=== PATIENT | male | born 1935 | race Caucasian/White ===

== ENCOUNTER 2023-06-08 19:33 | Inpatient (IN) | payer OTHER ==
[~2023-06-08] VITALS: Ht 165.1 cm; Wt 63.0 kg
[2023-06-08 19:58] VITALS: BP 138/72; PULSE 113; RESP 17; TEMP 98.2; O2SAT 94
[2023-06-08] MEDS ORDERED: NACL 0.9% 1,000 ML IV SCH (20:05)
[2023-06-08 22:15] LABS: BASOPHILS % (AUTO) 0.1 % (0.0-2.0); HEMATOCRIT 32.9 % (36-52); HEMOGLOBIN 10.6 g/dL (12.0-18.0); LYMPHOCYTES # (AUTO) 0.1 K/uL (2.0-11.5); MEAN CORPUSCULAR HEMOGLOBIN 29 pg (27-31); MEAN CORPUSCULAR HGB CONC 32 g/dL (33-37); MEAN CORPUSCULAR VOLUME 89.2 fL (80-94); MONOCYTES # (AUTO) 0.3 K/uL (0.8-1.0); MONOCYTES % (AUTO) 1.9 % (1.7-9.3); PLATELET COUNT (AUTO) 149 K/uL (140-450); RED BLOOD CELL COUNT(AUTO) 3.69 MIL/uL (4.20-6.10); RED CELL DISTRIBUTION WIDTH 16.3 % (11.6-13.7); WHITE BLOOD COUNT (AUTO) 14.4 K/uL (4.8-10.8)
[2023-06-08 22:38] LABS: ALANINE AMINOTRANSFERASE 31 U/L (12-78); ALBUMIN 2.1 g/dL (3.4-5.0); ALKALINE PHOSPHATASE 146 U/L (50-136); ANION GAP 26.8 (8-16); ASPARTATE AMINOTRANSFERASE 46 U/L (15-37); CALCIUM 9.1 mg/dL (8.5-10.1); CARBON DIOXIDE 15.7 mmol/L (21-32); CHLORIDE 100 mmol/L (98-107); CREATININE 0.8 mg/dL (0.6-1.3); GLUCOSE 227 mg/dL (74-106); POTASSIUM 4.5 mmol/L (3.5-5.1); SODIUM SERUM 138 mmol/L (136-145); TOTAL BILIRUBIN 0.6 mg/dL (0.0-1.0); UREA NITROGEN, BLOOD 36 mg/dL (7-18)
[2023-06-08 22:40] LABS: CREATINE KINASE, TOTAL 88 U/L (39-308)
[2023-06-08 22:48] LABS: LACTIC ACID 1.8 mmol/L (0.4-2.0)
[2023-06-08] MEDS ORDERED: VANCOMYCIN 1,000 MG in DEXTROSE 5% 250 ML IV ONE (23:10)
[2023-06-08] MEDS ORDERED: PIPERACILLIN/TAZOBACTAM 3.375 GM in DEXTROSE 5% 50 ML IV ONE (23:10)
[2023-06-08 23:25] LABS: FLU A ANTIGEN negative (NEGATIVE); FLU B ANTIGEN NEGATIVE (NEGATIVE)
[2023-06-08] MEDS ORDERED: PIPERACILLIN/TAZOBACTAM 3.375 GM VIAL IV ONE (23:27)
[2023-06-08] MEDS ORDERED: NACL 0.9% 1,000 ML IV ONE (23:40)
[2023-06-08 23:43] LABS: FREE T4 (FREE THYROXINE) 1.16 ng/dL (0.76-1.46)
[2023-06-08 23:44] LABS: THYROID STIMULATING HORMONE 0.2 uIU/mL (0.34-3.74)
[2023-06-09 00:45] LABS: APPEARANCE,URINE CLEAR (CLEAR); BILIRUBIN,URINE NEGATIVE (NEGATIVE); BLOOD, URINE NEGATIVE (NEGATIVE); COLOR,URINE YELLOW (YELLOW); LEUKOCYTE ESTERASE ,URINE NEGATIVE (NEGATIVE); NITRITE, URINE NEGATIVE (NEGATIVE); PROTEIN,URINE NEGATIVE (NEGATIVE); UGLUCOSE 3+ (NEGATIVE); UROBILINOGEN,URINE 0.2 EU/dL (0.2 - 1)
[2023-06-09] MEDS ORDERED: VANCOMYCIN 1,000 MG VIAL ONE (01:41)
[2023-06-09] MEDS ORDERED: NACL 0.9% 1,000 ML IV ONE (01:55)
[2023-06-09] MEDS ORDERED: DOCUSATE SODIUM 100 MG GELCAP PO PRN (02:35)
[2023-06-09] MEDS ORDERED: guaiFENesin DM 200/20 MG-10 ML 10 ML UDC PO PRN (02:35)
[2023-06-09] MEDS ORDERED: NACL 0.9% 1,000 ML IV SCH (02:35)
[2023-06-09] MEDS ORDERED: ZOLPIDEM 5 MG TAB PO PRN (02:35)
[2023-06-09] MEDS ORDERED: ONDANSETRON 4 MG/2 ML VIAL IM/IVP PRN (02:35)
[2023-06-09 05:32] LABS: BLOOD GAS BASE EXCESS -13.7 mmol/L (-2.0-2.0); BLOOD GAS HCO3 11.4 mmol/L (22-26); BLOOD GAS PCO2 24.7 mmHg (35-45); BLOOD GAS PH 7.281 (7.35-7.45); BLOOD GAS PO2 65.6 mmHg (75-100)
[2023-06-09 05:33] LABS: BLOOD GAS O2 SAT% 90.3 % (92.0-98.5)
[2023-06-09 06:29] LABS: BASOPHILS % (AUTO) 0.1 % (0.0-2.0); EOSINOPHILS # (AUTO) 0.1 K/uL (0-0.4); EOSINOPHILS % (AUTO) 0.5 % (0.0-4.0); HEMOGLOBIN 12.3 g/dL (12.0-18.0); LYMPHOCYTES # (AUTO) 0.3 K/uL (2.0-11.5); LYMPHOCYTES % (AUTO) 2.1 % (20.5-51.1); MEAN CORPUSCULAR HEMOGLOBIN 29 pg (27-31); MEAN CORPUSCULAR HGB CONC 32 g/dL (33-37); MEAN CORPUSCULAR VOLUME 90.3 fL (80-94); MONOCYTES # (AUTO) 0.3 K/uL (0.8-1.0); MONOCYTES % (AUTO) 2.1 % (1.7-9.3); NEUTROPHILS # (AUTO) 12.6 K/uL (1.8-7.7); NEUTROPHILS % (AUTO) 95.2 % (42.2-75.2); PLATELET COUNT (AUTO) 136 K/uL (140-450); RED BLOOD CELL COUNT(AUTO) 4.32 MIL/uL (4.20-6.10); RED CELL DISTRIBUTION WIDTH 16.6 % (11.6-13.7); WHITE BLOOD COUNT (AUTO) 13.3 K/uL (4.8-10.8)
[2023-06-09 07:10] LABS: ALANINE AMINOTRANSFERASE 32 U/L (12-78); ALBUMIN 1.9 g/dL (3.4-5.0); ALKALINE PHOSPHATASE 145 U/L (50-136); ANION GAP 25.4 (8-16); ASPARTATE AMINOTRANSFERASE 92 U/L (15-37); CALCIUM 8.5 mg/dL (8.5-10.1); CARBON DIOXIDE 14.8 mmol/L (21-32); CHLORIDE 104 mmol/L (98-107); CREATININE 0.6 mg/dL (0.6-1.3); GLUCOSE 168 mg/dL (74-106); POTASSIUM 4.2 mmol/L (3.5-5.1); SODIUM SERUM 140 mmol/L (136-145); TOTAL BILIRUBIN 0.6 mg/dL (0.0-1.0); TOTAL PROTEIN, SERUM 5.8 g/dL (6.4-8.2); UREA NITROGEN, BLOOD 24 mg/dL (7-18)
[2023-06-09] MEDS ORDERED: INSULIN REGULAR, HUMAN 100 UNIT in NACL 0.9% 100 ML IV SCH ×4 (08:45→12:10)
[2023-06-09] MEDS ORDERED: BLOOD GLUCOSE MONITORING 1 DEV DEV FS SCH (08:45)
[2023-06-09] MEDS ORDERED: DEXTROSE 50% 50 ML SYR IVP PRN ×2 (08:45→12:10)
[2023-06-09] MEDS ORDERED: PANTOPRAZOLE 40 MG TABEC PO SCH (09:00)
[2023-06-09] MEDS ORDERED: FUROSEMIDE 40 MG/4 ML VIAL IVP SCH (11:55)
[2023-06-09] MEDS ORDERED: VANCOMYCIN PER PHARMACY MC PRN (12:55)
[2023-06-09] MEDS: BLOOD GLUCOSE MONITORING 1 DEV DEV FS SCH ×11 (13:06→22:33)
[2023-06-09] MEDS: LEVALBUTEROL 0.63 MG/3 ML NEBU INH SCH ×2 (13:36→19:12)
[2023-06-09 13:37] VITALS: PULSE 127; RESP 22; O2SAT 93
[2023-06-09] MEDS ORDERED: VANCOMYCIN 750 MG in DEXTROSE 5% 250 ML IV SCH (14:00)
[2023-06-09 15:58] LABS: BLOOD GAS PCO2 19.1 mmHg (35-45); BLOOD GAS PH 7.249 (7.35-7.45)
[2023-06-09 15:59] LABS: BLOOD GAS HCO3 8.2 mmol/L (22-26); BLOOD GAS O2 SAT% 91.1 % (92.0-98.5)
[2023-06-09 16:39] LABS: ANION GAP 31.1 (8-16); CALCIUM 8.7 mg/dL (8.5-10.1); CARBON DIOXIDE 11.4 mmol/L (21-32); CHLORIDE 103 mmol/L (98-107); CREATININE 0.8 mg/dL (0.6-1.3); GLUCOSE 232 mg/dL (74-106); POTASSIUM 4.5 mmol/L (3.5-5.1); SODIUM SERUM 141 mmol/L (136-145); UREA NITROGEN, BLOOD 24 mg/dL (7-18)
[2023-06-09] MEDS: PIPERACILLIN/TAZOBACTAM 3.375 GM in DEXTROSE 5% 50 ML IV SCH (18:28)
[2023-06-09] MEDS ORDERED: PIPERACILLIN/TAZOBACTAM 3.375 GM VIAL IV ONE (18:29)
[2023-06-09 19:13] VITALS: PULSE 120; RESP 21; O2SAT 93
[2023-06-09] MEDS: DEXT 5% /NACL 0.9% 1,000 ML IV SCH (20:05)
[2023-06-09 20:36] LABS: ANION GAP 24.6 (8-16); CALCIUM 8.5 mg/dL (8.5-10.1); CARBON DIOXIDE 16.9 mmol/L (21-32); CHLORIDE 106 mmol/L (98-107); CREATININE 0.8 mg/dL (0.6-1.3); GLUCOSE 165 mg/dL (74-106); POTASSIUM 3.5 mmol/L (3.5-5.1); SODIUM SERUM 144 mmol/L (136-145); UREA NITROGEN, BLOOD 24 mg/dL (7-18)
[2023-06-09] MEDS: ACETAMINOPHEN 325 MG TAB PO PRN (20:55)
[2023-06-09] MEDS ORDERED: prednisoLONE 1% OP 5 ML BTL RIGHT EYE SCH (21:00)
[2023-06-09] MEDS: POTASSIUM CHLORIDE 10 MEQ TABER PO PRN (21:34)
[2023-06-09] MEDS: OPTHALMIC OP SCH (21:41)
[2023-06-09] MEDS: PROLENSA 0.07% OP SCH (21:41)
[2023-06-09] MEDS: [UNRECOGNIZED DRUG - OTHER] OP SCH (23:15)
[2023-06-09] MEDS ORDERED: NACL 0.9% 500 ML IV ONE (23:30)
[2023-06-10] VITALS (32 sets, daily range): BP systolic 65–160; BP diastolic 33–76; PULSE 65–170; RESP 15–63; TEMP 96.5–98.1; O2SAT 18–100
[2023-06-10] MEDS: BLOOD GLUCOSE MONITORING 1 DEV DEV FS SCH ×14 (00:20→18:25)
[2023-06-10] MEDS ORDERED: PIPERACILLIN/TAZOBACTAM 3.375 GM VIAL IV ONE ×2 (00:20→06:04)
[2023-06-10] MEDS: PIPERACILLIN/TAZOBACTAM 3.375 GM in DEXTROSE 5% 50 ML IV SCH ×4 (00:29→18:24)
[2023-06-10] MEDS: LEVALBUTEROL 0.63 MG/3 ML NEBU INH SCH ×4 (00:34→19:47)
[2023-06-10 01:03] LABS: ANION GAP 15.9 (8-16); CARBON DIOXIDE 22.8 mmol/L (21-32); CHLORIDE 109 mmol/L (98-107); CREATININE 0.8 mg/dL (0.6-1.3); GLUCOSE 154 mg/dL (74-106); POTASSIUM 3.7 mmol/L (3.5-5.1); SODIUM SERUM 144 mmol/L (136-145); UREA NITROGEN, BLOOD 20 mg/dL (7-18)
[2023-06-10] MEDS ORDERED: ALBUMIN HUMAN 25% 100 ML IV ONE (01:20)
[2023-06-10] MEDS: DEXT 5% /NACL 0.9% 1,000 ML IV SCH (01:56)
[2023-06-10 07:48] LABS: BASOPHILS % (AUTO) 0.3 % (0.0-2.0); EOSINOPHILS % (AUTO) 0.1 % (0.0-4.0); HEMATOCRIT 30.1 % (36-52); LYMPHOCYTES # (AUTO) 0.1 K/uL (2.0-11.5); LYMPHOCYTES % (AUTO) 0.7 % (20.5-51.1); MEAN CORPUSCULAR HEMOGLOBIN 29 pg (27-31); MEAN CORPUSCULAR HGB CONC 33 g/dL (33-37); MEAN CORPUSCULAR VOLUME 87.3 fL (80-94); MONOCYTES # (AUTO) 0.1 K/uL (0.8-1.0); MONOCYTES % (AUTO) 0.8 % (1.7-9.3); NEUTROPHILS # (AUTO) 12.1 K/uL (1.8-7.7); NEUTROPHILS % (AUTO) 98.1 % (42.2-75.2); PLATELET COUNT (AUTO) 140 K/uL (140-450); RED BLOOD CELL COUNT(AUTO) 3.45 MIL/uL (4.20-6.10); RED CELL DISTRIBUTION WIDTH 16.4 % (11.6-13.7); WHITE BLOOD COUNT (AUTO) 12.3 K/uL (4.8-10.8)
[2023-06-10 08:27] LABS: ALANINE AMINOTRANSFERASE 25 U/L (12-78); ALKALINE PHOSPHATASE 108 U/L (50-136); ANION GAP 13.9 (8-16); ASPARTATE AMINOTRANSFERASE 127 U/L (15-37); CALCIUM 7.8 mg/dL (8.5-10.1); CARBON DIOXIDE 21.1 mmol/L (21-32); CHLORIDE 114 mmol/L (98-107); CREATININE 0.6 mg/dL (0.6-1.3); GLUCOSE 147 mg/dL (74-106); SODIUM SERUM 146 mmol/L (136-145); TOTAL BILIRUBIN 0.5 mg/dL (0.0-1.0); UREA NITROGEN, BLOOD 14 mg/dL (7-18)
[2023-06-10] MEDS ORDERED: POTASSIUM CHLORIDE 10 MEQ TABER PO SCH (09:11)
[2023-06-10] MEDS: OPTHALMIC OP SCH ×2 (09:12→21:00)
[2023-06-10] MEDS: PROLENSA 0.07% OP SCH ×2 (09:12→21:00)
[2023-06-10] MEDS: PANTOPRAZOLE 40 MG INJ VIAL IVP SCH (09:23)
[2023-06-10] MEDS: [UNRECOGNIZED DRUG - OTHER] OP SCH ×4 (09:23→21:00)
[2023-06-10] MEDS: DEXT 5% / NACL 0.45% 1,000 ML IV SCH (09:25)
[2023-06-10] MEDS ORDERED: KCL 20 MEQ IN 100 mL PREMIX 100 ML IV ONE (11:30)
[2023-06-10] MEDS ORDERED: PRED15SO54 PO (12:02)
[2023-06-10] MEDS ORDERED: BROM3SOL RIGHT EYE (12:02)
[2023-06-10] MEDS: DILTIAZEM 25 MG/5 ML VIAL IVP PRN ×2 (12:12→18:03)
[2023-06-10] MEDS ORDERED: POTASSIUM CHLORIDE 40 MEQ, LIDOCAINE 1% 25 MG in NACL 0.9% 250 ML IV SCH (13:00)
[2023-06-10] MEDS: VANCOMYCIN 750 MG in DEXTROSE 5% 250 ML IV SCH (14:00)
[2023-06-10] MEDS: NOREPINEPHRINE 8 MG in DEXTROSE 5% 250 ML IV PRN (15:03)
[2023-06-10] MEDS: MIDAZOLAM MDV 50 MG in NACL 0.9% 40 ML IV PRN (15:06)
[2023-06-10] MEDS: fentaNYL citrate 1 MG in NACL 0.9% 80 ML IV PRN (15:07)
[2023-06-10 17:43] LABS: BLOOD GAS BASE EXCESS -10.3 mmol/L (-2.0-2.0); BLOOD GAS HCO3 17.9 mmol/L (22-26); BLOOD GAS PCO2 49.9 mmHg (35-45); BLOOD GAS PH 7.173 (7.35-7.45); BLOOD GAS PO2 93.6 mmHg (75-100)
[2023-06-10 17:44] LABS: BLOOD GAS O2 SAT% 95.9 % (92.0-98.5)
[2023-06-10] MEDS: SODIUM BICARBONATE 8.4% 100 MEQ in DEXTROSE 5% 1,000 ML IV SCH (18:05)
[2023-06-10] MEDS ORDERED: MEDICATION REC. PHARMACY CONS. 1 EA MISC MC PRN (18:30)
[2023-06-10] MEDS ORDERED: SODIUM BICARBONATE 8.4% PFS 50 MEQ/50 ML SYR IVP ONE (18:30)
[2023-06-10] MEDS: INSULIN LISPRO SLIDING SCALE 100 UNITS/ML VIAL SUBQ PRN ×2 (18:48→21:50)
[2023-06-10] MEDS: INSULIN LANTUS 100 UNITS/ML 10 ML VIAL SUBQ SCH (21:45)
[2023-06-11] VITALS (31 sets, daily range): BP systolic 98–167; BP diastolic 56–88; PULSE 69–129; RESP 14–22; TEMP 96.9–99.6; O2SAT 90–100
[2023-06-11] MEDS: LEVALBUTEROL 0.63 MG/3 ML NEBU INH SCH ×4 (00:51→19:38)
[2023-06-11] MEDS: PIPERACILLIN/TAZOBACTAM 3.375 GM in DEXTROSE 5% 50 ML IV SCH ×4 (01:08→17:40)
[2023-06-11] MEDS: MIDAZOLAM MDV 50 MG in NACL 0.9% 40 ML IV PRN (01:18)
[2023-06-11] MEDS: BLOOD GLUCOSE MONITORING 1 DEV DEV FS SCH ×3 (05:39→18:03)
[2023-06-11] MEDS: DEXT 5% / NACL 0.45% 1,000 ML IV SCH (05:40)
[2023-06-11] MEDS: INSULIN LISPRO SLIDING SCALE 100 UNITS/ML VIAL SUBQ PRN ×3 (05:42→18:04)
[2023-06-11] MEDS: fentaNYL citrate 1 MG in NACL 0.9% 80 ML IV PRN (06:55)
[2023-06-11 07:08] LABS: BASOPHILS # (AUTO) 0.1 K/uL (0.00-0.22); BASOPHILS % (AUTO) 0.7 % (0.0-2.0); EOSINOPHILS % (AUTO) 0.1 % (0.0-4.0); HEMOGLOBIN 8.9 g/dL (12.0-18.0); LYMPHOCYTES # (AUTO) 0.1 K/uL (2.0-11.5); LYMPHOCYTES % (AUTO) 0.6 % (20.5-51.1); MEAN CORPUSCULAR HEMOGLOBIN 29 pg (27-31); MEAN CORPUSCULAR HGB CONC 33 g/dL (33-37); MEAN CORPUSCULAR VOLUME 88.1 fL (80-94); MONOCYTES # (AUTO) 0.1 K/uL (0.8-1.0); MONOCYTES % (AUTO) 0.9 % (1.7-9.3); NEUTROPHILS # (AUTO) 12.1 K/uL (1.8-7.7); NEUTROPHILS % (AUTO) 97.7 % (42.2-75.2); PLATELET COUNT (AUTO) 102 K/uL (140-450); RED BLOOD CELL COUNT(AUTO) 3.06 MIL/uL (4.20-6.10); RED CELL DISTRIBUTION WIDTH 16.9 % (11.6-13.7); WHITE BLOOD COUNT (AUTO) 12.4 K/uL (4.8-10.8)
[2023-06-11 07:23] LABS: ALANINE AMINOTRANSFERASE 30 U/L (12-78); ALBUMIN 1.5 g/dL (3.4-5.0); ALKALINE PHOSPHATASE 125 U/L (50-136); ANION GAP 13.7 (8-16); ASPARTATE AMINOTRANSFERASE 77 U/L (15-37); CALCIUM 7.7 mg/dL (8.5-10.1); CARBON DIOXIDE 24.7 mmol/L (21-32); CHLORIDE 114 mmol/L (98-107); CREATININE 0.4 mg/dL (0.6-1.3); GLUCOSE 223 mg/dL (74-106); POTASSIUM 3.4 mmol/L (3.5-5.1); SODIUM SERUM 149 mmol/L (136-145); TOTAL BILIRUBIN 0.4 mg/dL (0.0-1.0); TOTAL PROTEIN, SERUM 4.5 g/dL (6.4-8.2); UREA NITROGEN, BLOOD 16 mg/dL (7-18)
[2023-06-11] MEDS ORDERED: POTASSIUM CHLORIDE 40 MEQ, LIDOCAINE 1% 25 MG in NACL 0.9% 250 ML IV ONE (08:50)
[2023-06-11] MEDS: OPTHALMIC OP SCH ×2 (09:00→21:05)
[2023-06-11] MEDS: PROLENSA 0.07% OP SCH ×2 (09:00→21:05)
[2023-06-11] MEDS ORDERED: CABOZANTINIB 20 MG PO SCH (09:00)
[2023-06-11] MEDS: [UNRECOGNIZED DRUG - OTHER] OP SCH ×4 (09:00→21:03)
[2023-06-11] MEDS: ENOXAPARIN 30 MG/0.3 ML SYR SUBQ SCH (09:00)
[2023-06-11] MEDS: PANTOPRAZOLE 40 MG INJ VIAL IVP SCH (09:33)
[2023-06-11] MEDS: NACL 0.45% 1,000 ML IV SCH (09:40)
[2023-06-11] MEDS ORDERED: KCL 20 MEQ IN 100 mL PREMIX 200 ML IV SCH (10:00)
[2023-06-11] MEDS: NOREPINEPHRINE 8 MG in DEXTROSE 5% 250 ML IV PRN ×2 (13:12→21:24)
[2023-06-11] MEDS: VANCOMYCIN 750 MG in DEXTROSE 5% 250 ML IV SCH (14:04)
[2023-06-11] MEDS: SODIUM BICARBONATE 8.4% 100 MEQ in DEXTROSE 5% 1,000 ML IV SCH (17:40)
[2023-06-11] MEDS: INSULIN LANTUS 100 UNITS/ML 10 ML VIAL SUBQ SCH (21:14)
[2023-06-12] VITALS (31 sets, daily range): BP systolic 91–115; BP diastolic 58–78; PULSE 103–184; RESP 13–26; TEMP 96.8–208; O2SAT 93–100
[2023-06-12] MEDS: LEVALBUTEROL 0.63 MG/3 ML NEBU INH SCH ×4 (00:32→19:15)
[2023-06-12] MEDS: PIPERACILLIN/TAZOBACTAM 3.375 GM in DEXTROSE 5% 50 ML IV SCH ×5 (00:44→23:18)
[2023-06-12] MEDS: BLOOD GLUCOSE MONITORING 1 DEV DEV FS SCH ×5 (00:44→23:28)
[2023-06-12] MEDS: INSULIN LISPRO SLIDING SCALE 100 UNITS/ML VIAL SUBQ PRN ×4 (00:45→20:25)
[2023-06-12 05:37] LABS: BASOPHILS % (AUTO) 0.2 % (0.0-2.0); EOSINOPHILS % (AUTO) 0.2 % (0.0-4.0); HEMATOCRIT 29.7 % (36-52); HEMOGLOBIN 9.8 g/dL (12.0-18.0); LYMPHOCYTES # (AUTO) 0.2 K/uL (2.0-11.5); LYMPHOCYTES % (AUTO) 1.1 % (20.5-51.1); MEAN CORPUSCULAR HEMOGLOBIN 29 pg (27-31); MEAN CORPUSCULAR HGB CONC 33 g/dL (33-37); MEAN CORPUSCULAR VOLUME 87.3 fL (80-94); MONOCYTES # (AUTO) 0.2 K/uL (0.8-1.0); MONOCYTES % (AUTO) 1.2 % (1.7-9.3); NEUTROPHILS # (AUTO) 18.1 K/uL (1.8-7.7); NEUTROPHILS % (AUTO) 97.3 % (42.2-75.2); PLATELET COUNT (AUTO) 98 K/uL (140-450); RED CELL DISTRIBUTION WIDTH 16.7 % (11.6-13.7); WHITE BLOOD COUNT (AUTO) 18.6 K/uL (4.8-10.8)
[2023-06-12 06:23] LABS: ALANINE AMINOTRANSFERASE 50 U/L (12-78); ALBUMIN 1.4 g/dL (3.4-5.0); ALKALINE PHOSPHATASE 153 U/L (50-136); ANION GAP 12.9 (8-16); ASPARTATE AMINOTRANSFERASE 163 U/L (15-37); CALCIUM 7.6 mg/dL (8.5-10.1); CARBON DIOXIDE 25.1 mmol/L (21-32); CHLORIDE 111 mmol/L (98-107); CREATININE 0.6 mg/dL (0.6-1.3); GLUCOSE 264 mg/dL (74-106); SODIUM SERUM 145 mmol/L (136-145); TOTAL BILIRUBIN 0.4 mg/dL (0.0-1.0); TOTAL PROTEIN, SERUM 4.9 g/dL (6.4-8.2); UREA NITROGEN, BLOOD 16 mg/dL (7-18)
[2023-06-12] MEDS: NOREPINEPHRINE 8 MG in DEXTROSE 5% 250 ML IV PRN (07:14)
[2023-06-12] MEDS: PREDNISOLONE 1% OP SCH ×2 (09:00→20:28)
[2023-06-12] MEDS: PROLENSA 0.07% OP SCH ×2 (09:34→20:29)
[2023-06-12] MEDS: PANTOPRAZOLE 40 MG INJ VIAL IVP SCH (09:34)
[2023-06-12] MEDS: OPTHALMIC OP SCH ×2 (09:34→20:29)
[2023-06-12] MEDS: NACL 0.45% 1,000 ML IV SCH (09:48)
[2023-06-12] MEDS ORDERED: ALBUMIN HUMAN 5 % 250 ML IV ONE (12:00)
[2023-06-12] MEDS: ENOXAPARIN 30 MG/0.3 ML SYR SUBQ SCH (12:27)
[2023-06-12] MEDS: VANCOMYCIN 1,000 MG in DEXTROSE 5% 250 ML IV SCH (15:19)
[2023-06-12] MEDS ORDERED: DIGOXIN 0.25 MG/ML AMP IV SCH (16:15)
[2023-06-12] MEDS ORDERED: DIGOXIN 0.25 MG/ML AMP IV ONE (16:24)
[2023-06-12] MEDS ORDERED: AMIODARONE 150 MG in DEXTROSE 5% 100 ML IV SCH (17:00)
[2023-06-12] MEDS: AMIODARONE 450 MG in DEXTROSE 5% 250 ML IV SCH (17:13)
[2023-06-12] MEDS: HYDROcodone/APAP 7.5/325 MG 1 TAB PO PRN (18:08)
[2023-06-12] MEDS: INSULIN LANTUS 100 UNITS/ML 10 ML VIAL SUBQ SCH (20:26)
[2023-06-13] VITALS (38 sets, daily range): BP systolic 98–136; BP diastolic 51–90; PULSE 98–120; RESP 12–27; TEMP 97–98.6; O2SAT 10–100
[2023-06-13] MEDS: NOREPINEPHRINE 8 MG in DEXTROSE 5% 250 ML IV PRN (00:48)
[2023-06-13] MEDS: LEVALBUTEROL 0.63 MG/3 ML NEBU INH SCH ×4 (01:21→18:51)
[2023-06-13] MEDS: AMIODARONE 450 MG in DEXTROSE 5% 250 ML IV SCH (02:23)
[2023-06-13] MEDS: PIPERACILLIN/TAZOBACTAM 3.375 GM in DEXTROSE 5% 50 ML IV SCH ×4 (05:49→23:41)
[2023-06-13 05:50] LABS: EOSINOPHILS % (AUTO) 0.2 % (0.0-4.0); HEMATOCRIT 30.6 % (36-52); LYMPHOCYTES # (AUTO) 0.2 K/uL (2.0-11.5); LYMPHOCYTES % (AUTO) 1.5 % (20.5-51.1); MEAN CORPUSCULAR HEMOGLOBIN 29 pg (27-31); MEAN CORPUSCULAR HGB CONC 33 g/dL (33-37); MEAN CORPUSCULAR VOLUME 87.5 fL (80-94); MONOCYTES # (AUTO) 0.2 K/uL (0.8-1.0); MONOCYTES % (AUTO) 1.3 % (1.7-9.3); NEUTROPHILS # (AUTO) 14.3 K/uL (1.8-7.7); PLATELET COUNT (AUTO) 75 K/uL (140-450); RED CELL DISTRIBUTION WIDTH 16.8 % (11.6-13.7); WHITE BLOOD COUNT (AUTO) 14.8 K/uL (4.8-10.8)
[2023-06-13] MEDS: INSULIN LISPRO SLIDING SCALE 100 UNITS/ML VIAL SUBQ PRN ×3 (05:51→23:36)
[2023-06-13] MEDS: BLOOD GLUCOSE MONITORING 1 DEV DEV FS SCH ×4 (05:55→23:40)
[2023-06-13] MEDS: HYDROcodone/APAP 7.5/325 MG 1 TAB PO PRN ×3 (06:06→23:25)
[2023-06-13 06:18] LABS: ALANINE AMINOTRANSFERASE 50 U/L (12-78); ALBUMIN 1.5 g/dL (3.4-5.0); ALKALINE PHOSPHATASE 245 U/L (50-136); ANION GAP 12.2 (8-16); ASPARTATE AMINOTRANSFERASE 92 U/L (15-37); CALCIUM 7.8 mg/dL (8.5-10.1); CARBON DIOXIDE 23.8 mmol/L (21-32); CHLORIDE 103 mmol/L (98-107); CREATININE 0.5 mg/dL (0.6-1.3); GLUCOSE 228 mg/dL (74-106); SODIUM SERUM 135 mmol/L (136-145); TOTAL BILIRUBIN 0.6 mg/dL (0.0-1.0); TOTAL PROTEIN, SERUM 5.1 g/dL (6.4-8.2); UREA NITROGEN, BLOOD 17 mg/dL (7-18)
[2023-06-13] MEDS: ENOXAPARIN 30 MG/0.3 ML SYR SUBQ SCH (09:00)
[2023-06-13] MEDS ORDERED: FUROSEMIDE 20 MG/2 ML VIAL IVP SCH (09:00)
[2023-06-13] MEDS: MIDODRINE 5 MG TAB PO SCH ×3 (09:25→18:48)
[2023-06-13] MEDS: PANTOPRAZOLE 40 MG INJ VIAL IVP SCH (09:26)
[2023-06-13] MEDS: FUROSEMIDE 20 MG/2 ML VIAL IVP SCH ×2 (09:27→21:24)
[2023-06-13] MEDS: CABOZANTINIB 20 MG PO SCH (09:30)
[2023-06-13] MEDS: PREDNISOLONE 1% OP SCH ×2 (09:33→21:25)
[2023-06-13] MEDS: OPTHALMIC OP SCH ×2 (09:59→21:26)
[2023-06-13] MEDS: PROLENSA 0.07% OP SCH ×2 (09:59→21:26)
[2023-06-13] MEDS: VANCOMYCIN 1,000 MG in DEXTROSE 5% 250 ML IV SCH (14:22)
[2023-06-13] MEDS: INSULIN LANTUS 100 UNITS/ML 10 ML VIAL SUBQ SCH (21:34)
[2023-06-13] MEDS: AMIODARONE 200 MG TAB PO SCH (23:25)
[2023-06-14] VITALS (37 sets, daily range): BP systolic 85–128; BP diastolic 56–85; PULSE 82–116; RESP 14–25; TEMP 97–99.1; O2SAT 93–100
[2023-06-14] MEDS: LEVALBUTEROL 0.63 MG/3 ML NEBU INH SCH ×4 (00:43→19:58)
[2023-06-14 05:37] LABS: EOSINOPHILS % (AUTO) 0.1 % (0.0-4.0); HEMOGLOBIN 10.5 g/dL (12.0-18.0); LYMPHOCYTES # (AUTO) 0.2 K/uL (2.0-11.5); LYMPHOCYTES % (AUTO) 1.9 % (20.5-51.1); MEAN CORPUSCULAR HEMOGLOBIN 28 pg (27-31); MEAN CORPUSCULAR HGB CONC 33 g/dL (33-37); MEAN CORPUSCULAR VOLUME 86.3 fL (80-94); MONOCYTES # (AUTO) 0.2 K/uL (0.8-1.0); MONOCYTES % (AUTO) 1.8 % (1.7-9.3); NEUTROPHILS # (AUTO) 11.3 K/uL (1.8-7.7); NEUTROPHILS % (AUTO) 96.2 % (42.2-75.2); PLATELET COUNT (AUTO) 71 K/uL (140-450); RED CELL DISTRIBUTION WIDTH 16.3 % (11.6-13.7); WHITE BLOOD COUNT (AUTO) 11.8 K/uL (4.8-10.8)
[2023-06-14] MEDS: PIPERACILLIN/TAZOBACTAM 3.375 GM in DEXTROSE 5% 50 ML IV SCH (05:37)
[2023-06-14] MEDS: BLOOD GLUCOSE MONITORING 1 DEV DEV FS SCH ×3 (05:38→18:49)
[2023-06-14 06:12] LABS: ALANINE AMINOTRANSFERASE 45 U/L (12-78); ALBUMIN 1.3 g/dL (3.4-5.0); ALKALINE PHOSPHATASE 223 U/L (50-136); ANION GAP 9.3 (8-16); ASPARTATE AMINOTRANSFERASE 57 U/L (15-37); CALCIUM 7.9 mg/dL (8.5-10.1); CHLORIDE 99 mmol/L (98-107); CREATININE 0.6 mg/dL (0.6-1.3); GLUCOSE 137 mg/dL (74-106); POTASSIUM 3.3 mmol/L (3.5-5.1); SODIUM SERUM 135 mmol/L (136-145); TOTAL BILIRUBIN 0.6 mg/dL (0.0-1.0); TOTAL PROTEIN, SERUM 5.1 g/dL (6.4-8.2); UREA NITROGEN, BLOOD 20 mg/dL (7-18)
[2023-06-14] MEDS: POTASSIUM CHLORIDE 10 MEQ TABER PO PRN (06:47)
[2023-06-14] MEDS: ENOXAPARIN 30 MG/0.3 ML SYR SUBQ SCH (07:51)
[2023-06-14] MEDS ORDERED: KCL 20 MEQ IN 100 mL PREMIX 200 ML IV SCH (08:00)
[2023-06-14] MEDS: PANTOPRAZOLE 40 MG INJ VIAL IVP SCH (09:29)
[2023-06-14] MEDS: FUROSEMIDE 20 MG/2 ML VIAL IVP SCH ×2 (09:29→22:02)
[2023-06-14] MEDS: AMIODARONE 200 MG TAB PO SCH ×2 (09:30→22:03)
[2023-06-14] MEDS: PROLENSA 0.07% OP SCH ×2 (09:31→21:00)
[2023-06-14] MEDS: OPTHALMIC OP SCH ×2 (09:31→21:00)
[2023-06-14] MEDS: PREDNISOLONE 1% OP SCH ×2 (09:31→21:00)
[2023-06-14] MEDS: NOREPINEPHRINE 8 MG in DEXTROSE 5% 250 ML IV PRN (10:08)
[2023-06-14] MEDS: HYDROcodone/APAP 7.5/325 MG 1 TAB PO PRN (10:36)
[2023-06-14] MEDS ORDERED: bisacodyL 10 MG SUPP RC SCH (12:30)
[2023-06-14] MEDS: MIDODRINE 5 MG TAB PO SCH ×2 (12:59→18:49)
[2023-06-14] MEDS: VANCOMYCIN 1,000 MG in DEXTROSE 5% 250 ML IV SCH (16:50)
[2023-06-14] MEDS: INSULIN LANTUS 100 UNITS/ML 10 ML VIAL SUBQ SCH (22:04)
[2023-06-15] VITALS (36 sets, daily range): BP systolic 80–129; BP diastolic 53–74; PULSE 82–116; RESP 14–25; TEMP 97–98.2; O2SAT 94–100
[2023-06-15] MEDS: INSULIN LISPRO SLIDING SCALE 100 UNITS/ML VIAL SUBQ PRN ×2 (00:49→18:50)
[2023-06-15] MEDS: BLOOD GLUCOSE MONITORING 1 DEV DEV FS SCH ×4 (00:51→18:30)
[2023-06-15] MEDS: LEVALBUTEROL 0.63 MG/3 ML NEBU INH SCH ×3 (01:48→20:04)
[2023-06-15 05:45] LABS: BASOPHILS % (AUTO) 0.1 % (0.0-2.0); EOSINOPHILS % (AUTO) 0.1 % (0.0-4.0); HEMATOCRIT 31.3 % (36-52); HEMOGLOBIN 10.1 g/dL (12.0-18.0); LYMPHOCYTES # (AUTO) 0.2 K/uL (2.0-11.5); LYMPHOCYTES % (AUTO) 1.6 % (20.5-51.1); MEAN CORPUSCULAR HEMOGLOBIN 28 pg (27-31); MEAN CORPUSCULAR HGB CONC 32 g/dL (33-37); MEAN CORPUSCULAR VOLUME 86.2 fL (80-94); MONOCYTES # (AUTO) 0.2 K/uL (0.8-1.0); MONOCYTES % (AUTO) 2.1 % (1.7-9.3); NEUTROPHILS % (AUTO) 96.1 % (42.2-75.2); PLATELET COUNT (AUTO) 81 K/uL (140-450); RED BLOOD CELL COUNT(AUTO) 3.63 MIL/uL (4.20-6.10); RED CELL DISTRIBUTION WIDTH 16.1 % (11.6-13.7); WHITE BLOOD COUNT (AUTO) 11.5 K/uL (4.8-10.8)
[2023-06-15 06:37] LABS: ALANINE AMINOTRANSFERASE 45 U/L (12-78); ALBUMIN 1.3 g/dL (3.4-5.0); ALKALINE PHOSPHATASE 234 U/L (50-136); ANION GAP 10.2 (8-16); ASPARTATE AMINOTRANSFERASE 50 U/L (15-37); CALCIUM 7.9 mg/dL (8.5-10.1); CARBON DIOXIDE 30.4 mmol/L (21-32); CHLORIDE 95 mmol/L (98-107); CREATININE 0.6 mg/dL (0.6-1.3); GLUCOSE 156 mg/dL (74-106); POTASSIUM 3.6 mmol/L (3.5-5.1); SODIUM SERUM 132 mmol/L (136-145); TOTAL BILIRUBIN 0.4 mg/dL (0.0-1.0); TOTAL PROTEIN, SERUM 5.1 g/dL (6.4-8.2); UREA NITROGEN, BLOOD 10 mg/dL (7-18)
[2023-06-15] MEDS: NOREPINEPHRINE 8 MG in DEXTROSE 5% 250 ML IV PRN (07:21)
[2023-06-15] MEDS: CABOZANTINIB 20 MG PO SCH (09:00)
[2023-06-15] MEDS: ENOXAPARIN 30 MG/0.3 ML SYR SUBQ SCH (09:00)
[2023-06-15] MEDS: PANTOPRAZOLE 40 MG INJ VIAL IVP SCH (09:04)
[2023-06-15] MEDS: MIDODRINE 5 MG TAB PO SCH ×3 (09:04→21:27)
[2023-06-15] MEDS: AMIODARONE 200 MG TAB PO SCH ×2 (09:05→21:26)
[2023-06-15] MEDS: PROLENSA 0.07% OP SCH ×2 (09:09→21:39)
[2023-06-15] MEDS: OPTHALMIC OP SCH ×2 (09:09→21:39)
[2023-06-15] MEDS: PREDNISOLONE 1% OP SCH ×2 (09:09→21:39)
[2023-06-15 10:19] LABS: BLOOD GAS BASE EXCESS 8.7 mmol/L (-2.0-2.0); BLOOD GAS HCO3 30.9 mmol/L (22-26); BLOOD GAS PCO2 33.6 mmHg (35-45); BLOOD GAS PH 7.581 (7.35-7.45); BLOOD GAS PO2 65.9 mmHg (75-100)
[2023-06-15 10:20] LABS: BLOOD GAS O2 SAT% 94.5 % (92.0-98.5)
[2023-06-15] MEDS: VANCOMYCIN 1,000 MG in DEXTROSE 5% 250 ML IV SCH (15:00)
[2023-06-15] MEDS ORDERED: ALBUMIN HUMAN 25% 100 ML IV SCH (15:50)
[2023-06-15] MEDS: PIPERACILLIN/TAZOBACTAM 3.375 GM in DEXTROSE 5% 50 ML IV SCH (18:35)
[2023-06-15] MEDS: INSULIN LANTUS 100 UNITS/ML 10 ML VIAL SUBQ SCH (21:33)
[2023-06-16] VITALS (39 sets, daily range): BP systolic 94–127; BP diastolic 46–76; PULSE 68–90; RESP 14–27; TEMP 96.5–97.5; O2SAT 97–100
[2023-06-16] MEDS: PIPERACILLIN/TAZOBACTAM 3.375 GM in DEXTROSE 5% 50 ML IV SCH ×4 (00:16→18:57)
[2023-06-16] MEDS: BLOOD GLUCOSE MONITORING 1 DEV DEV FS SCH ×4 (00:31→18:28)
[2023-06-16] MEDS: LEVALBUTEROL 0.63 MG/3 ML NEBU INH SCH ×4 (00:56→19:36)
[2023-06-16] MEDS: NOREPINEPHRINE 8 MG in DEXTROSE 5% 250 ML IV PRN (02:27)
[2023-06-16 05:30] LABS: EOSINOPHILS % (AUTO) 0.2 % (0.0-4.0); HEMATOCRIT 26.1 % (36-52); HEMOGLOBIN 8.9 g/dL (12.0-18.0); LYMPHOCYTES # (AUTO) 0.2 K/uL (2.0-11.5); LYMPHOCYTES % (AUTO) 1.9 % (20.5-51.1); MEAN CORPUSCULAR HEMOGLOBIN 29 pg (27-31); MEAN CORPUSCULAR HGB CONC 34 g/dL (33-37); MEAN CORPUSCULAR VOLUME 85.8 fL (80-94); MONOCYTES # (AUTO) 0.1 K/uL (0.8-1.0); MONOCYTES % (AUTO) 1.4 % (1.7-9.3); NEUTROPHILS # (AUTO) 9.3 K/uL (1.8-7.7); NEUTROPHILS % (AUTO) 96.5 % (42.2-75.2); PLATELET COUNT (AUTO) 80 K/uL (140-450); RED BLOOD CELL COUNT(AUTO) 3.04 MIL/uL (4.20-6.10); RED CELL DISTRIBUTION WIDTH 15.8 % (11.6-13.7); WHITE BLOOD COUNT (AUTO) 9.6 K/uL (4.8-10.8)
[2023-06-16 06:34] LABS: ALANINE AMINOTRANSFERASE 36 U/L (12-78); ALBUMIN 1.6 g/dL (3.4-5.0); ALKALINE PHOSPHATASE 178 U/L (50-136); ANION GAP 8.6 (8-16); ASPARTATE AMINOTRANSFERASE 37 U/L (15-37); CALCIUM 8.2 mg/dL (8.5-10.1); CARBON DIOXIDE 30.9 mmol/L (21-32); CHLORIDE 96 mmol/L (98-107); CREATININE 0.6 mg/dL (0.6-1.3); GLUCOSE 157 mg/dL (74-106); POTASSIUM 3.5 mmol/L (3.5-5.1); SODIUM SERUM 132 mmol/L (136-145); TOTAL BILIRUBIN 0.6 mg/dL (0.0-1.0); UREA NITROGEN, BLOOD 25 mg/dL (7-18)
[2023-06-16] MEDS: AMIODARONE 200 MG TAB PO SCH ×2 (08:49→21:26)
[2023-06-16] MEDS: PANTOPRAZOLE 40 MG INJ VIAL IVP SCH (08:49)
[2023-06-16] MEDS: MIDODRINE 5 MG TAB PO SCH ×3 (08:55→19:00)
[2023-06-16] MEDS: PREDNISOLONE 1% OP SCH ×2 (09:00→21:25)
[2023-06-16] MEDS: PROLENSA 0.07% OP SCH ×2 (09:00→21:26)
[2023-06-16] MEDS: OPTHALMIC OP SCH ×2 (09:00→21:26)
[2023-06-16 12:36] LABS: BLOOD GAS BASE EXCESS 8.7 mmol/L (-2.0-2.0); BLOOD GAS HCO3 31.9 mmol/L (22-26); BLOOD GAS PCO2 38.7 mmHg (35-45); BLOOD GAS PH 7.534 (7.35-7.45); BLOOD GAS PO2 87.5 mmHg (75-100)
[2023-06-16 12:37] LABS: BLOOD GAS O2 SAT% 96.8 % (92.0-98.5)
[2023-06-16] MEDS: ALBUMIN HUMAN 25% 100 ML IV SCH (14:54)
[2023-06-16] MEDS: VANCOMYCIN 1,000 MG in DEXTROSE 5% 250 ML IV SCH (14:54)
[2023-06-16] MEDS ORDERED: HYDROcodone/APAP 7.5/325 MG 1 TAB PO PRN (17:15)
[2023-06-16] MEDS: INSULIN LISPRO SLIDING SCALE 100 UNITS/ML VIAL SUBQ PRN (18:58)
[2023-06-16] MEDS: ACETAMINOPHEN 325 MG TAB PO PRN (20:53)
[2023-06-16] MEDS: INSULIN LANTUS 100 UNITS/ML 10 ML VIAL SUBQ SCH (22:02)
[2023-06-17] VITALS (31 sets, daily range): BP systolic 10–116; BP diastolic 47–59; PULSE 66–79; RESP 16–39; TEMP 97.1–99.1; O2SAT 97–100
[2023-06-17] MEDS: LEVALBUTEROL 0.63 MG/3 ML NEBU INH SCH ×4 (00:28→19:02)
[2023-06-17] MEDS: BLOOD GLUCOSE MONITORING 1 DEV DEV FS SCH ×4 (00:38→17:24)
[2023-06-17] MEDS: PIPERACILLIN/TAZOBACTAM 3.375 GM in DEXTROSE 5% 50 ML IV SCH ×4 (00:38→17:08)
[2023-06-17] MEDS: ALBUMIN HUMAN 25% 100 ML IV SCH (00:57)
[2023-06-17] MEDS: MIDODRINE 5 MG TAB PO SCH ×3 (06:03→18:31)
[2023-06-17] MEDS: ACETAMINOPHEN 325 MG TAB PO PRN (06:04)
[2023-06-17 07:30] LABS: ANION GAP 9.4 (8-16); CALCIUM 7.8 mg/dL (8.5-10.1); CARBON DIOXIDE 31.3 mmol/L (21-32); CHLORIDE 95 mmol/L (98-107); CREATININE 0.6 mg/dL (0.6-1.3); GLUCOSE 86 mg/dL (74-106); POTASSIUM 3.7 mmol/L (3.5-5.1); SODIUM SERUM 132 mmol/L (136-145); UREA NITROGEN, BLOOD 22 mg/dL (7-18)
[2023-06-17] MEDS: PANTOPRAZOLE 40 MG INJ VIAL IVP SCH (08:33)
[2023-06-17] MEDS: AMIODARONE 200 MG TAB PO SCH ×2 (08:33→20:47)
[2023-06-17] MEDS: CABOZANTINIB 20 MG PO SCH (08:34)
[2023-06-17] MEDS: OPTHALMIC OP SCH ×2 (08:34→20:48)
[2023-06-17] MEDS: PROLENSA 0.07% OP SCH ×2 (08:34→20:48)
[2023-06-17] MEDS: PREDNISOLONE 1% OP SCH ×2 (08:34→20:48)
[2023-06-17 12:01] LABS: BASOPHILS % (AUTO) 0.1 % (0.0-2.0); EOSINOPHILS % (AUTO) 0.2 % (0.0-4.0); HEMATOCRIT 22.2 % (36-52); HEMOGLOBIN 7.5 g/dL (12.0-18.0); LYMPHOCYTES # (AUTO) 0.2 K/uL (2.0-11.5); LYMPHOCYTES % (AUTO) 2.5 % (20.5-51.1); MEAN CORPUSCULAR HEMOGLOBIN 29 pg (27-31); MEAN CORPUSCULAR HGB CONC 34 g/dL (33-37); MEAN CORPUSCULAR VOLUME 85.4 fL (80-94); MONOCYTES # (AUTO) 0.1 K/uL (0.8-1.0); MONOCYTES % (AUTO) 1.6 % (1.7-9.3); NEUTROPHILS # (AUTO) 7.4 K/uL (1.8-7.7); NEUTROPHILS % (AUTO) 95.6 % (42.2-75.2); PLATELET COUNT (AUTO) 62 K/uL (140-450); WHITE BLOOD COUNT (AUTO) 7.8 K/uL (4.8-10.8)
[2023-06-17] MEDS: VANCOMYCIN 1,000 MG in DEXTROSE 5% 250 ML IV SCH (15:34)
[2023-06-17] MEDS ORDERED: AZITHROMYCIN 500 MG in DEXTROSE 5% 250 ML IV SCH (17:25)
[2023-06-17] MEDS ORDERED: AZITHROMYCIN 500 MG INJ VIAL IV ONE (20:37)
[2023-06-17] MEDS: AZITHROMYCIN 500 MG in DEXTROSE 5% 250 ML IV SCH (20:47)
[2023-06-17] MEDS: INSULIN LANTUS 100 UNITS/ML 10 ML VIAL SUBQ SCH (20:59)
[2023-06-18] VITALS (32 sets, daily range): BP systolic 91–123; BP diastolic 42–65; PULSE 51–80; RESP 12–33; TEMP 97.7–98.9; O2SAT 99–100
[2023-06-18] MEDS: LEVALBUTEROL 0.63 MG/3 ML NEBU INH SCH ×4 (00:02→19:24)
[2023-06-18] MEDS: BLOOD GLUCOSE MONITORING 1 DEV DEV FS SCH ×5 (00:15→18:32)
[2023-06-18] MEDS: PIPERACILLIN/TAZOBACTAM 3.375 GM in DEXTROSE 5% 50 ML IV SCH ×4 (00:16→18:01)
[2023-06-18] MEDS: ACETAMINOPHEN 325 MG TAB PO PRN (01:26)
[2023-06-18 04:37] LABS: BASOPHILS % (AUTO) 0.1 % (0.0-2.0); EOSINOPHILS % (AUTO) 0.3 % (0.0-4.0); HEMATOCRIT 22.6 % (36-52); HEMOGLOBIN 7.7 g/dL (12.0-18.0); LYMPHOCYTES # (AUTO) 0.1 K/uL (2.0-11.5); LYMPHOCYTES % (AUTO) 1.5 % (20.5-51.1); MEAN CORPUSCULAR HEMOGLOBIN 29 pg (27-31); MEAN CORPUSCULAR HGB CONC 34 g/dL (33-37); MONOCYTES # (AUTO) 0.1 K/uL (0.8-1.0); MONOCYTES % (AUTO) 1.1 % (1.7-9.3); NEUTROPHILS # (AUTO) 7.5 K/uL (1.8-7.7); PLATELET COUNT (AUTO) 60 K/uL (140-450); RED BLOOD CELL COUNT(AUTO) 2.66 MIL/uL (4.20-6.10); RED CELL DISTRIBUTION WIDTH 15.5 % (11.6-13.7)
[2023-06-18 05:23] LABS: ALANINE AMINOTRANSFERASE 32 U/L (12-78); ALBUMIN 1.6 g/dL (3.4-5.0); ALKALINE PHOSPHATASE 120 U/L (50-136); ANION GAP 3.6 (8-16); ASPARTATE AMINOTRANSFERASE 37 U/L (15-37); CALCIUM 7.7 mg/dL (8.5-10.1); CARBON DIOXIDE 34.8 mmol/L (21-32); CHLORIDE 96 mmol/L (98-107); CREATININE 0.6 mg/dL (0.6-1.3); GLUCOSE 57 mg/dL (74-106); POTASSIUM 3.4 mmol/L (3.5-5.1); SODIUM SERUM 131 mmol/L (136-145); TOTAL BILIRUBIN 0.4 mg/dL (0.0-1.0); TOTAL PROTEIN, SERUM 4.4 g/dL (6.4-8.2); UREA NITROGEN, BLOOD 22 mg/dL (7-18)
[2023-06-18] MEDS ORDERED: DEXTROSE 50% 50 ML SYR IVP ONE ×2 (05:50→06:35)
[2023-06-18] MEDS: MIDODRINE 5 MG TAB PO SCH ×3 (06:14→19:33)
[2023-06-18 07:39] LABS: WHITE BLOOD COUNT (AUTO) 7.7 K/uL (4.8-10.8)
[2023-06-18] MEDS: PANTOPRAZOLE 40 MG INJ VIAL IVP SCH (08:33)
[2023-06-18] MEDS: AMIODARONE 200 MG TAB PO SCH ×2 (08:33→20:18)
[2023-06-18] MEDS: PREDNISOLONE 1% OP SCH ×2 (08:37→20:23)
[2023-06-18] MEDS: PROLENSA 0.07% OP SCH ×2 (08:37→20:23)
[2023-06-18] MEDS: OPTHALMIC OP SCH ×2 (08:37→20:23)
[2023-06-18] MEDS ORDERED: POTASSIUM CHLORIDE 20% 40 MEQ/15 ML UDC GT PRN (08:55)
[2023-06-18] MEDS ORDERED: KCL 20 MEQ IN 100 mL PREMIX 200 ML IV SCH (13:20)
[2023-06-18] MEDS: INSULIN LISPRO SLIDING SCALE 100 UNITS/ML VIAL SUBQ PRN (18:34)
[2023-06-18] MEDS: AZITHROMYCIN 500 MG in DEXTROSE 5% 250 ML IV SCH (19:33)
[2023-06-18] MEDS: INSULIN LANTUS 100 UNITS/ML 10 ML VIAL SUBQ SCH (20:19)
[2023-06-19] VITALS (23 sets, daily range): BP systolic 96–125; BP diastolic 48–69; PULSE 61–88; RESP 13–32; TEMP 97–98.6; O2SAT 98–100
[2023-06-19] MEDS: PIPERACILLIN/TAZOBACTAM 3.375 GM in DEXTROSE 5% 50 ML IV SCH ×5 (00:09→23:25)
[2023-06-19] MEDS: BLOOD GLUCOSE MONITORING 1 DEV DEV FS SCH ×5 (00:14→23:24)
[2023-06-19] MEDS: LEVALBUTEROL 0.63 MG/3 ML NEBU INH SCH ×3 (01:04→19:43)
[2023-06-19 05:06] LABS: EOSINOPHILS % (AUTO) 0.4 % (0.0-4.0); HEMATOCRIT 26.8 % (36-52); HEMOGLOBIN 8.9 g/dL (12.0-18.0); LYMPHOCYTES # (AUTO) 0.2 K/uL (2.0-11.5); LYMPHOCYTES % (AUTO) 2.3 % (20.5-51.1); MEAN CORPUSCULAR HEMOGLOBIN 28 pg (27-31); MEAN CORPUSCULAR HGB CONC 33 g/dL (33-37); MEAN CORPUSCULAR VOLUME 85.6 fL (80-94); MONOCYTES # (AUTO) 0.1 K/uL (0.8-1.0); MONOCYTES % (AUTO) 1.4 % (1.7-9.3); NEUTROPHILS # (AUTO) 7.1 K/uL (1.8-7.7); NEUTROPHILS % (AUTO) 95.9 % (42.2-75.2); PLATELET COUNT (AUTO) 69 K/uL (140-450); RED BLOOD CELL COUNT(AUTO) 3.13 MIL/uL (4.20-6.10); RED CELL DISTRIBUTION WIDTH 15.7 % (11.6-13.7); WHITE BLOOD COUNT (AUTO) 7.4 K/uL (4.8-10.8)
[2023-06-19 05:32] LABS: ALANINE AMINOTRANSFERASE 36 U/L (12-78); ALBUMIN 1.5 g/dL (3.4-5.0); ALKALINE PHOSPHATASE 129 U/L (50-136); ANION GAP 6.8 (8-16); ASPARTATE AMINOTRANSFERASE 36 U/L (15-37); CALCIUM 7.8 mg/dL (8.5-10.1); CARBON DIOXIDE 33.5 mmol/L (21-32); CHLORIDE 94 mmol/L (98-107); CREATININE 0.5 mg/dL (0.6-1.3); GLUCOSE 103 mg/dL (74-106); POTASSIUM 4.3 mmol/L (3.5-5.1); SODIUM SERUM 130 mmol/L (136-145); TOTAL BILIRUBIN 0.4 mg/dL (0.0-1.0); TOTAL PROTEIN, SERUM 4.6 g/dL (6.4-8.2); UREA NITROGEN, BLOOD 18 mg/dL (7-18)
[2023-06-19] MEDS: MIDODRINE 5 MG TAB PO SCH ×3 (06:15→18:03)
[2023-06-19] MEDS: AMIODARONE 200 MG TAB PO SCH ×2 (08:47→20:32)
[2023-06-19] MEDS: PANTOPRAZOLE 40 MG INJ VIAL IVP SCH (08:50)
[2023-06-19] MEDS: CABOZANTINIB 20 MG PO SCH (08:51)
[2023-06-19] MEDS: PREDNISOLONE 1% OP SCH ×2 (08:53→20:27)
[2023-06-19] MEDS: PROLENSA 0.07% OP SCH ×2 (08:53→20:27)
[2023-06-19] MEDS: OPTHALMIC OP SCH ×2 (08:53→20:27)
[2023-06-19 11:06] LABS: BLOOD GAS PCO2 37.2 mmHg (35-45); BLOOD GAS PH 7.539 (7.35-7.45); BLOOD GAS PO2 113.9 mmHg (75-100)
[2023-06-19 11:07] LABS: BLOOD GAS O2 SAT% 98.3 % (92.0-98.5)
[2023-06-19] MEDS ORDERED: DEXTROSE 50% 50 ML SYR IVP ONE (11:43)
[2023-06-19] MEDS ORDERED: DEXTROSE 50% 50 ML SYR IVP SCH (12:07)
[2023-06-19] MEDS: AZITHROMYCIN 500 MG in DEXTROSE 5% 250 ML IV SCH (20:08)
[2023-06-19] MEDS: INSULIN LANTUS 100 UNITS/ML 10 ML VIAL SUBQ SCH (20:37)
[2023-06-20] VITALS (32 sets, daily range): BP systolic 11–130; BP diastolic 52–84; PULSE 57–96; RESP 15–26; TEMP 97–98.5; O2SAT 24–100
[2023-06-20] MEDS: LEVALBUTEROL 0.63 MG/3 ML NEBU INH SCH ×4 (01:11→21:23)
[2023-06-20 05:16] LABS: BASOPHILS % (AUTO) 0.2 % (0.0-2.0); EOSINOPHILS % (AUTO) 0.3 % (0.0-4.0); HEMATOCRIT 27.7 % (36-52); HEMOGLOBIN 9.4 g/dL (12.0-18.0); LYMPHOCYTES # (AUTO) 0.1 K/uL (2.0-11.5); LYMPHOCYTES % (AUTO) 2.2 % (20.5-51.1); MEAN CORPUSCULAR HEMOGLOBIN 29 pg (27-31); MEAN CORPUSCULAR HGB CONC 34 g/dL (33-37); MEAN CORPUSCULAR VOLUME 84.9 fL (80-94); MONOCYTES # (AUTO) 0.1 K/uL (0.8-1.0); MONOCYTES % (AUTO) 1.7 % (1.7-9.3); NEUTROPHILS # (AUTO) 5.9 K/uL (1.8-7.7); NEUTROPHILS % (AUTO) 95.6 % (42.2-75.2); PLATELET COUNT (AUTO) 86 K/uL (140-450); RED BLOOD CELL COUNT(AUTO) 3.27 MIL/uL (4.20-6.10); RED CELL DISTRIBUTION WIDTH 15.9 % (11.6-13.7); WHITE BLOOD COUNT (AUTO) 6.2 K/uL (4.8-10.8)
[2023-06-20 05:36] LABS: ALANINE AMINOTRANSFERASE 39 U/L (12-78); ALBUMIN 1.4 g/dL (3.4-5.0); ALKALINE PHOSPHATASE 137 U/L (50-136); ANION GAP 6.2 (8-16); ASPARTATE AMINOTRANSFERASE 37 U/L (15-37); CALCIUM 7.9 mg/dL (8.5-10.1); CARBON DIOXIDE 33.1 mmol/L (21-32); CHLORIDE 93 mmol/L (98-107); CREATININE 0.5 mg/dL (0.6-1.3); GLUCOSE 280 mg/dL (74-106); POTASSIUM 4.3 mmol/L (3.5-5.1); SODIUM SERUM 128 mmol/L (136-145); TOTAL BILIRUBIN 0.4 mg/dL (0.0-1.0); TOTAL PROTEIN, SERUM 4.7 g/dL (6.4-8.2); UREA NITROGEN, BLOOD 19 mg/dL (7-18)
[2023-06-20] MEDS: PIPERACILLIN/TAZOBACTAM 3.375 GM in DEXTROSE 5% 50 ML IV SCH ×4 (05:53→23:21)
[2023-06-20] MEDS: BLOOD GLUCOSE MONITORING 1 DEV DEV FS SCH ×4 (06:06→23:40)
[2023-06-20] MEDS: MIDODRINE 5 MG TAB PO SCH ×3 (06:15→18:04)
[2023-06-20] MEDS ORDERED: CALCIUM GLUCONATE 10% 1,000 MG in NACL 0.9% 50 ML IV ONE (07:45)
[2023-06-20] MEDS: PREDNISOLONE 1% OP SCH ×2 (09:00→20:19)
[2023-06-20 09:16] LABS: BLOOD GAS BASE EXCESS 5.7 mmol/L (-2.0-2.0); BLOOD GAS O2 SAT% 97.2 % (92.0-98.5); BLOOD GAS PCO2 36.7 mmHg (35-45); BLOOD GAS PH 7.515 (7.35-7.45); BLOOD GAS PO2 89.2 mmHg (75-100)
[2023-06-20] MEDS: OPTHALMIC OP SCH ×2 (09:55→20:20)
[2023-06-20] MEDS: PANTOPRAZOLE 40 MG INJ VIAL IVP SCH (09:55)
[2023-06-20] MEDS: PROLENSA 0.07% OP SCH ×2 (09:55→20:20)
[2023-06-20] MEDS: AMIODARONE 200 MG TAB PO SCH ×2 (09:55→20:36)
[2023-06-20] MEDS: INSULIN LISPRO SLIDING SCALE 100 UNITS/ML VIAL SUBQ PRN ×3 (13:09→23:39)
[2023-06-20] MEDS: SODIUM CHLORIDE 1 GM TAB GT SCH ×2 (13:12→18:05)
[2023-06-20] MEDS: AZITHROMYCIN 500 MG in DEXTROSE 5% 250 ML IV SCH (20:17)
[2023-06-20] MEDS: INSULIN LANTUS 100 UNITS/ML 10 ML VIAL SUBQ SCH (20:34)
[2023-06-21] VITALS (32 sets, daily range): BP systolic 90–123; BP diastolic 46–94; PULSE 2–95; RESP 17–30; TEMP 97.6–99.9; O2SAT 98–100
[2023-06-21] MEDS: LEVALBUTEROL 0.63 MG/3 ML NEBU INH SCH ×4 (01:57→19:32)
[2023-06-21] MEDS: PIPERACILLIN/TAZOBACTAM 3.375 GM in DEXTROSE 5% 50 ML IV SCH ×4 (05:36→23:25)
[2023-06-21] MEDS: BLOOD GLUCOSE MONITORING 1 DEV DEV FS SCH ×4 (05:36→23:33)
[2023-06-21 05:40] LABS: BASOPHILS % (AUTO) 0.3 % (0.0-2.0); EOSINOPHILS % (AUTO) 0.9 % (0.0-4.0); HEMATOCRIT 26.1 % (36-52); HEMOGLOBIN 8.6 g/dL (12.0-18.0); LYMPHOCYTES # (AUTO) 0.2 K/uL (2.0-11.5); LYMPHOCYTES % (AUTO) 4.7 % (20.5-51.1); MEAN CORPUSCULAR HEMOGLOBIN 28 pg (27-31); MEAN CORPUSCULAR HGB CONC 33 g/dL (33-37); MEAN CORPUSCULAR VOLUME 86.1 fL (80-94); MONOCYTES # (AUTO) 0.1 K/uL (0.8-1.0); MONOCYTES % (AUTO) 2.1 % (1.7-9.3); NEUTROPHILS # (AUTO) 3.7 K/uL (1.8-7.7); PLATELET COUNT (AUTO) 91 K/uL (140-450); RED BLOOD CELL COUNT(AUTO) 3.04 MIL/uL (4.20-6.10); RED CELL DISTRIBUTION WIDTH 16.2 % (11.6-13.7); WHITE BLOOD COUNT (AUTO) 4.1 K/uL (4.8-10.8)
[2023-06-21] MEDS: MIDODRINE 5 MG TAB PO SCH ×3 (06:18→18:27)
[2023-06-21 07:24] LABS: ALANINE AMINOTRANSFERASE 39 U/L (12-78); ALBUMIN 1.5 g/dL (3.4-5.0); ALKALINE PHOSPHATASE 116 U/L (50-136); ANION GAP 8.9 (8-16); ASPARTATE AMINOTRANSFERASE 37 U/L (15-37); CALCIUM 8.2 mg/dL (8.5-10.1); CARBON DIOXIDE 32.1 mmol/L (21-32); CHLORIDE 94 mmol/L (98-107); CREATININE 0.5 mg/dL (0.6-1.3); GLUCOSE 146 mg/dL (74-106); SODIUM SERUM 131 mmol/L (136-145); TOTAL BILIRUBIN 0.3 mg/dL (0.0-1.0); TOTAL PROTEIN, SERUM 4.6 g/dL (6.4-8.2); UREA NITROGEN, BLOOD 21 mg/dL (7-18)
[2023-06-21] MEDS: PANTOPRAZOLE 40 MG INJ VIAL IVP SCH (08:45)
[2023-06-21] MEDS: SODIUM CHLORIDE 1 GM TAB GT SCH ×3 (08:45→17:01)
[2023-06-21] MEDS: PREDNISOLONE 1% OP SCH ×2 (08:59→20:15)
[2023-06-21] MEDS: OPTHALMIC OP SCH ×2 (08:59→20:15)
[2023-06-21] MEDS: PROLENSA 0.07% OP SCH ×2 (08:59→20:15)
[2023-06-21] MEDS: CABOZANTINIB 20 MG PO SCH (09:00)
[2023-06-21] MEDS: AMIODARONE 200 MG TAB PO SCH (09:00)
[2023-06-21] MEDS: ACETAMINOPHEN 325 MG TAB PO PRN (18:30)
[2023-06-21] MEDS: INSULIN LISPRO SLIDING SCALE 100 UNITS/ML VIAL SUBQ PRN ×2 (19:03→23:32)
[2023-06-21] MEDS: AZITHROMYCIN 500 MG in DEXTROSE 5% 250 ML IV SCH (20:14)
[2023-06-21] MEDS: INSULIN LANTUS 100 UNITS/ML 10 ML VIAL SUBQ SCH (20:18)
[2023-06-21] MEDS: AMIODARONE 200 MG TAB GT SCH (20:20)
[2023-06-22] VITALS (33 sets, daily range): BP systolic 100–131; BP diastolic 47–95; PULSE 63–78; RESP 13–26; TEMP 97.5–99; O2SAT 91–100
[2023-06-22] MEDS: LEVALBUTEROL 0.63 MG/3 ML NEBU INH SCH ×4 (01:42→19:51)
[2023-06-22] MEDS: PIPERACILLIN/TAZOBACTAM 3.375 GM in DEXTROSE 5% 50 ML IV SCH ×4 (05:21→23:29)
[2023-06-22] MEDS: BLOOD GLUCOSE MONITORING 1 DEV DEV FS SCH ×4 (05:29→23:29)
[2023-06-22] MEDS: MIDODRINE 5 MG TAB PO SCH ×3 (06:20→18:21)
[2023-06-22 06:25] LABS: BASOPHILS % (AUTO) 0.7 % (0.0-2.0); EOSINOPHILS # (AUTO) 0.1 K/uL (0-0.4); EOSINOPHILS % (AUTO) 1.6 % (0.0-4.0); HEMATOCRIT 23.7 % (36-52); HEMOGLOBIN 7.9 g/dL (12.0-18.0); LYMPHOCYTES # (AUTO) 0.2 K/uL (2.0-11.5); LYMPHOCYTES % (AUTO) 6.1 % (20.5-51.1); MEAN CORPUSCULAR HEMOGLOBIN 29 pg (27-31); MEAN CORPUSCULAR HGB CONC 33 g/dL (33-37); MEAN CORPUSCULAR VOLUME 85.3 fL (80-94); MONOCYTES # (AUTO) 0.1 K/uL (0.8-1.0); MONOCYTES % (AUTO) 3.1 % (1.7-9.3); NEUTROPHILS # (AUTO) 3.3 K/uL (1.8-7.7); NEUTROPHILS % (AUTO) 88.5 % (42.2-75.2); PLATELET COUNT (AUTO) 85 K/uL (140-450); RED BLOOD CELL COUNT(AUTO) 2.78 MIL/uL (4.20-6.10); WHITE BLOOD COUNT (AUTO) 3.7 K/uL (4.8-10.8)
[2023-06-22 06:37] LABS: CALCIUM 7.9 mg/dL (8.5-10.1); CHLORIDE 95 mmol/L (98-107); CREATININE 0.7 mg/dL (0.6-1.3); GLUCOSE 153 mg/dL (74-106); SODIUM SERUM 132 mmol/L (136-145); UREA NITROGEN, BLOOD 23 mg/dL (7-18)
[2023-06-22] MEDS: AMIODARONE 200 MG TAB GT SCH ×2 (09:00→20:31)
[2023-06-22] MEDS: SODIUM CHLORIDE 1 GM TAB GT SCH ×3 (09:39→17:45)
[2023-06-22] MEDS: PANTOPRAZOLE 40 MG INJ VIAL IVP SCH (09:39)
[2023-06-22] MEDS: OPTHALMIC OP SCH ×2 (09:44→20:32)
[2023-06-22] MEDS: PROLENSA 0.07% OP SCH ×2 (09:44→20:32)
[2023-06-22] MEDS: PREDNISOLONE 1% OP SCH ×2 (09:45→20:32)
[2023-06-22] MEDS: AZITHROMYCIN 500 MG in DEXTROSE 5% 250 ML IV SCH (20:30)
[2023-06-22] MEDS: INSULIN LANTUS 100 UNITS/ML 10 ML VIAL SUBQ SCH (20:47)
[2023-06-22] MEDS: INSULIN LISPRO SLIDING SCALE 100 UNITS/ML VIAL SUBQ PRN (23:28)
[2023-06-23] VITALS (27 sets, daily range): BP systolic 99–144; BP diastolic 44–67; PULSE 65–83; RESP 13–29; TEMP 96.8–99.5; O2SAT 91–100
[2023-06-23] MEDS: LEVALBUTEROL 0.63 MG/3 ML NEBU INH SCH ×4 (01:19→20:06)
[2023-06-23] MEDS: PIPERACILLIN/TAZOBACTAM 3.375 GM in DEXTROSE 5% 50 ML IV SCH ×4 (05:26→23:47)
[2023-06-23 05:59] LABS: ANION GAP 6.8 (8-16); CALCIUM 8.2 mg/dL (8.5-10.1); CARBON DIOXIDE 34.6 mmol/L (21-32); CHLORIDE 96 mmol/L (98-107); CREATININE 0.7 mg/dL (0.6-1.3); GLUCOSE 95 mg/dL (74-106); POTASSIUM 4.4 mmol/L (3.5-5.1); SODIUM SERUM 133 mmol/L (136-145); UREA NITROGEN, BLOOD 24 mg/dL (7-18)
[2023-06-23] MEDS: BLOOD GLUCOSE MONITORING 1 DEV DEV FS SCH ×4 (06:28→23:48)
[2023-06-23] MEDS: MIDODRINE 5 MG TAB PO SCH ×3 (06:29→19:06)
[2023-06-23 07:39] LABS: BASOPHILS % (AUTO) 0.3 % (0.0-2.0); EOSINOPHILS # (AUTO) 0.1 K/uL (0-0.4); EOSINOPHILS % (AUTO) 1.5 % (0.0-4.0); HEMATOCRIT 24.2 % (36-52); HEMOGLOBIN 8.1 g/dL (12.0-18.0); LYMPHOCYTES # (AUTO) 0.2 K/uL (2.0-11.5); LYMPHOCYTES % (AUTO) 6.3 % (20.5-51.1); MEAN CORPUSCULAR HEMOGLOBIN 28 pg (27-31); MEAN CORPUSCULAR HGB CONC 33 g/dL (33-37); MEAN CORPUSCULAR VOLUME 85.3 fL (80-94); MONOCYTES # (AUTO) 0.1 K/uL (0.8-1.0); MONOCYTES % (AUTO) 2.9 % (1.7-9.3); NEUTROPHILS # (AUTO) 3.2 K/uL (1.8-7.7); PLATELET COUNT (AUTO) 98 K/uL (140-450); RED BLOOD CELL COUNT(AUTO) 2.84 MIL/uL (4.20-6.10); RED CELL DISTRIBUTION WIDTH 16.5 % (11.6-13.7); WHITE BLOOD COUNT (AUTO) 3.6 K/uL (4.8-10.8)
[2023-06-23] MEDS: SODIUM CHLORIDE 1 GM TAB GT SCH ×3 (09:00→17:00)
[2023-06-23] MEDS: CABOZANTINIB 20 MG PO SCH (09:00)
[2023-06-23] MEDS: AMIODARONE 200 MG TAB GT SCH ×2 (09:00→20:09)
[2023-06-23] MEDS: PROLENSA 0.07% OP SCH ×2 (09:00→20:56)
[2023-06-23] MEDS: OPTHALMIC OP SCH ×2 (09:00→20:56)
[2023-06-23] MEDS: PREDNISOLONE 1% OP SCH ×2 (09:00→20:56)
[2023-06-23] MEDS: PANTOPRAZOLE 40 MG INJ VIAL IVP SCH (09:00)
[2023-06-23] MEDS: AZITHROMYCIN 500 MG in DEXTROSE 5% 250 ML IV SCH (20:10)
[2023-06-23] MEDS: INSULIN LANTUS 100 UNITS/ML 10 ML VIAL SUBQ SCH (20:58)
[2023-06-24] VITALS (21 sets, daily range): BP systolic 95–149; BP diastolic 47–70; PULSE 69–91; RESP 10–38; TEMP 97.2–99.4; O2SAT 90–100
[2023-06-24] MEDS: LEVALBUTEROL 0.63 MG/3 ML NEBU INH SCH ×4 (01:40→20:03)
[2023-06-24 05:04] LABS: BASOPHILS % (AUTO) 0.3 % (0.0-2.0); EOSINOPHILS % (AUTO) 0.6 % (0.0-4.0); HEMATOCRIT 25.6 % (36-52); HEMOGLOBIN 8.5 g/dL (12.0-18.0); LYMPHOCYTES # (AUTO) 0.2 K/uL (2.0-11.5); LYMPHOCYTES % (AUTO) 5.1 % (20.5-51.1); MEAN CORPUSCULAR HEMOGLOBIN 28 pg (27-31); MEAN CORPUSCULAR HGB CONC 33 g/dL (33-37); MEAN CORPUSCULAR VOLUME 85.4 fL (80-94); MONOCYTES # (AUTO) 0.1 K/uL (0.8-1.0); MONOCYTES % (AUTO) 3.4 % (1.7-9.3); NEUTROPHILS % (AUTO) 90.6 % (42.2-75.2); PLATELET COUNT (AUTO) 96 K/uL (140-450); RED CELL DISTRIBUTION WIDTH 16.5 % (11.6-13.7); WHITE BLOOD COUNT (AUTO) 4.4 K/uL (4.8-10.8)
[2023-06-24 05:06] LABS: ANION GAP 9.6 (8-16); CALCIUM 7.9 mg/dL (8.5-10.1); CARBON DIOXIDE 29.9 mmol/L (21-32); CHLORIDE 96 mmol/L (98-107); CREATININE 0.8 mg/dL (0.6-1.3); GLUCOSE 231 mg/dL (74-106); POTASSIUM 4.5 mmol/L (3.5-5.1); SODIUM SERUM 131 mmol/L (136-145); UREA NITROGEN, BLOOD 27 mg/dL (7-18)
[2023-06-24] MEDS: PIPERACILLIN/TAZOBACTAM 3.375 GM in DEXTROSE 5% 50 ML IV SCH ×4 (06:06→23:54)
[2023-06-24] MEDS: MIDODRINE 5 MG TAB PO SCH ×3 (06:07→17:03)
[2023-06-24] MEDS: BLOOD GLUCOSE MONITORING 1 DEV DEV FS SCH ×3 (06:07→18:03)
[2023-06-24] MEDS: AMIODARONE 200 MG TAB GT SCH ×2 (07:54→21:00)
[2023-06-24] MEDS: SODIUM CHLORIDE 1 GM TAB GT SCH ×3 (08:01→17:00)
[2023-06-24] MEDS: PANTOPRAZOLE 40 MG INJ VIAL IVP SCH (08:04)
[2023-06-24] MEDS: PREDNISOLONE 1% OP SCH ×2 (08:05→21:59)
[2023-06-24] MEDS: OPTHALMIC OP SCH ×2 (08:05→21:59)
[2023-06-24] MEDS: PROLENSA 0.07% OP SCH ×2 (08:05→21:59)
[2023-06-24] MEDS: ACETAMINOPHEN 325 MG TAB PO PRN (09:24)
[2023-06-24] MEDS: INSULIN LISPRO SLIDING SCALE 100 UNITS/ML VIAL SUBQ PRN (12:39)
[2023-06-24] MEDS ORDERED: ACETYLCYSTEINE 20% (200 MG/ML) 200 MG/ML VIAL INH ONE (17:10)
[2023-06-24] MEDS: AZITHROMYCIN 500 MG in DEXTROSE 5% 250 ML IV SCH (20:05)
[2023-06-24] MEDS: DEXT 5% / NACL 0.45% 1,000 ML IV SCH (21:58)
[2023-06-24] MEDS: INSULIN LANTUS 100 UNITS/ML 10 ML VIAL SUBQ SCH (22:04)
[2023-06-25] VITALS (23 sets, daily range): BP systolic 113–142; BP diastolic 59–85; PULSE 73–98; RESP 13–35; TEMP 97–103; O2SAT 91–96
[2023-06-25] MEDS: BLOOD GLUCOSE MONITORING 1 DEV DEV FS SCH ×4 (00:02→18:00)
[2023-06-25] MEDS: LEVALBUTEROL 0.63 MG/3 ML NEBU INH SCH ×4 (00:55→21:01)
[2023-06-25] MEDS: PIPERACILLIN/TAZOBACTAM 3.375 GM in DEXTROSE 5% 50 ML IV SCH ×3 (05:31→18:14)
[2023-06-25] MEDS: DEXTROSE 50% 50 ML SYR IVP PRN ×2 (05:31→12:58)
[2023-06-25] MEDS: MIDODRINE 5 MG TAB PO SCH ×3 (06:13→19:00)
[2023-06-25 06:18] LABS: ANION GAP 7.8 (8-16); CALCIUM 8.2 mg/dL (8.5-10.1); CARBON DIOXIDE 30.7 mmol/L (21-32); CHLORIDE 99 mmol/L (98-107); CREATININE 0.7 mg/dL (0.6-1.3); GLUCOSE 162 mg/dL (74-106); POTASSIUM 3.5 mmol/L (3.5-5.1); SODIUM SERUM 134 mmol/L (136-145); UREA NITROGEN, BLOOD 24 mg/dL (7-18)
[2023-06-25 06:36] LABS: BASOPHILS % (AUTO) 0.2 % (0.0-2.0); EOSINOPHILS % (AUTO) 0.5 % (0.0-4.0); HEMATOCRIT 25.4 % (36-52); HEMOGLOBIN 8.7 g/dL (12.0-18.0); LYMPHOCYTES # (AUTO) 0.2 K/uL (2.0-11.5); MEAN CORPUSCULAR HEMOGLOBIN 29 pg (27-31); MEAN CORPUSCULAR HGB CONC 34 g/dL (33-37); MEAN CORPUSCULAR VOLUME 85.8 fL (80-94); MONOCYTES # (AUTO) 0.1 K/uL (0.8-1.0); MONOCYTES % (AUTO) 2.5 % (1.7-9.3); NEUTROPHILS # (AUTO) 4.4 K/uL (1.8-7.7); NEUTROPHILS % (AUTO) 92.8 % (42.2-75.2); PLATELET COUNT (AUTO) 125 K/uL (140-450); RED BLOOD CELL COUNT(AUTO) 2.96 MIL/uL (4.20-6.10); RED CELL DISTRIBUTION WIDTH 16.1 % (11.6-13.7); WHITE BLOOD COUNT (AUTO) 4.7 K/uL (4.8-10.8)
[2023-06-25] MEDS: SODIUM CHLORIDE 1 GM TAB GT SCH ×3 (09:00→17:00)
[2023-06-25] MEDS: CABOZANTINIB 20 MG PO SCH (09:00)
[2023-06-25] MEDS: AMIODARONE 200 MG TAB GT SCH ×2 (09:00→21:00)
[2023-06-25] MEDS: PANTOPRAZOLE 40 MG INJ VIAL IVP SCH (09:51)
[2023-06-25] MEDS: PREDNISOLONE 1% OP SCH ×2 (09:54→21:49)
[2023-06-25] MEDS: OPTHALMIC OP SCH ×2 (09:54→21:49)
[2023-06-25] MEDS: PROLENSA 0.07% OP SCH ×2 (09:54→21:49)
[2023-06-25] MEDS: DEXTROSE 10% 1,000 ML IV SCH (10:00)
[2023-06-25] MEDS ORDERED: TPN PER PHARMACY MC PRN (11:40)
[2023-06-25 12:45] LABS: PHOSPHORUS 2.2 mg/dL (2.5-4.9)
[2023-06-25] MEDS ORDERED: SCOPOLAMINE 1.5 MG/72 HR PATCH TD SCH (14:50)
[2023-06-25] MEDS: DEXT 5% / NACL 0.45% 1,000 ML IV SCH (20:30)
[2023-06-25] MEDS: INSULIN LANTUS 100 UNITS/ML 10 ML VIAL SUBQ SCH (21:00)
[2023-06-26] VITALS (11 sets, daily range): BP systolic 112–139; BP diastolic 51–69; PULSE 72–102; RESP 18–38; TEMP 97.2–99.3; O2SAT 87–99
[2023-06-26] MEDS: BLOOD GLUCOSE MONITORING 1 DEV DEV FS SCH ×3 (00:03→11:36)
[2023-06-26] MEDS: PIPERACILLIN/TAZOBACTAM 3.375 GM in DEXTROSE 5% 50 ML IV SCH ×4 (00:03→17:48)
[2023-06-26] MEDS: LEVALBUTEROL 0.63 MG/3 ML NEBU INH SCH ×4 (01:20→19:46)
[2023-06-26 03:50] LABS: BASOPHILS % (AUTO) 0.1 % (0.0-2.0); EOSINOPHILS % (AUTO) 0.6 % (0.0-4.0); HEMATOCRIT 22.2 % (36-52); HEMOGLOBIN 7.5 g/dL (12.0-18.0); LYMPHOCYTES # (AUTO) 0.2 K/uL (2.0-11.5); MEAN CORPUSCULAR HEMOGLOBIN 29 pg (27-31); MEAN CORPUSCULAR HGB CONC 34 g/dL (33-37); MEAN CORPUSCULAR VOLUME 86.7 fL (80-94); MONOCYTES # (AUTO) 0.1 K/uL (0.8-1.0); MONOCYTES % (AUTO) 2.6 % (1.7-9.3); NEUTROPHILS # (AUTO) 4.4 K/uL (1.8-7.7); NEUTROPHILS % (AUTO) 92.7 % (42.2-75.2); PLATELET COUNT (AUTO) 91 K/uL (140-450); RED BLOOD CELL COUNT(AUTO) 2.57 MIL/uL (4.20-6.10); WHITE BLOOD COUNT (AUTO) 4.7 K/uL (4.8-10.8)
[2023-06-26 03:59] LABS: MAGNESIUM 1.8 mg/dL (1.8-2.4); PHOSPHORUS 2.7 mg/dL (2.5-4.9)
[2023-06-26 04:14] LABS: ANION GAP 9.1 (8-16); CALCIUM 7.5 mg/dL (8.5-10.1); CARBON DIOXIDE 27.4 mmol/L (21-32); CHLORIDE 98 mmol/L (98-107); CREATININE 0.6 mg/dL (0.6-1.3); GLUCOSE 385 mg/dL (74-106); POTASSIUM 3.5 mmol/L (3.5-5.1); SODIUM SERUM 131 mmol/L (136-145); UREA NITROGEN, BLOOD 16 mg/dL (7-18)
[2023-06-26] MEDS: DEXTROSE 10% 1,000 ML IV SCH (05:08)
[2023-06-26] MEDS: PREDNISOLONE 1% OP SCH ×2 (09:00→20:29)
[2023-06-26] MEDS: OPTHALMIC OP SCH ×2 (09:00→20:29)
[2023-06-26] MEDS: PROLENSA 0.07% OP SCH ×2 (09:00→20:29)
[2023-06-26] MEDS: PANTOPRAZOLE 40 MG INJ VIAL IVP SCH (10:08)
[2023-06-26] MEDS: SODIUM CHLORIDE 1 GM TAB GT SCH ×3 (10:08→16:41)
[2023-06-26] MEDS: MIDODRINE 5 MG TAB PO SCH ×3 (10:08→18:40)
[2023-06-26] MEDS: AMIODARONE 200 MG TAB GT SCH ×2 (10:09→20:39)
[2023-06-26] MEDS: DEXT 5% / NACL 0.45% 1,000 ML IV SCH (10:47)
[2023-06-26] MEDS: BLOOD GLUCOSE MONITORING 1 DEV DEV MC SCH (17:54)
[2023-06-26] MEDS ORDERED: ACETYLCYSTEINE 20% (200 MG/ML) 200 MG/ML VIAL INH ONE (19:00)
[2023-06-26] MEDS ORDERED: ACETYLCYSTEINE 20% (200 MG/ML) 200 MG/ML VIAL ONE (19:38)
[2023-06-26] MEDS ORDERED: MULTIVITAMIN IV SCH ×4 (20:00)
[2023-06-26] MEDS ORDERED: DEXTROSE IV SCH ×4 (20:00)
[2023-06-26] MEDS ORDERED: [UNRECOGNIZED DRUG - OTHER] IV SCH ×4 (20:00)
[2023-06-26] MEDS ORDERED: AMINO ACIDS IV SCH ×4 (20:00)
[2023-06-26] MEDS: INSULIN LANTUS 100 UNITS/ML 10 ML VIAL SUBQ SCH (20:30)
[2023-06-26] MEDS ORDERED: ACETYLCYSTEINE 20% (200 MG/ML) 200 MG/ML VIAL INH SCH (21:00)
[2023-06-27] VITALS (8 sets, daily range): BP systolic 107–133; BP diastolic 61–78; PULSE 72–126; RESP 18–26; TEMP 96.7–99.3; O2SAT 85–92
[2023-06-27] MEDS: PIPERACILLIN/TAZOBACTAM 3.375 GM in DEXTROSE 5% 50 ML IV SCH ×3 (00:06→11:59)
[2023-06-27] MEDS: BLOOD GLUCOSE MONITORING 1 DEV DEV MC SCH ×3 (00:11→12:10)
[2023-06-27] MEDS: LEVALBUTEROL 0.63 MG/3 ML NEBU INH SCH ×2 (01:19→09:32)
[2023-06-27] MEDS: INSULIN LISPRO SLIDING SCALE 100 UNITS/ML VIAL SUBQ PRN ×2 (06:08→12:11)
[2023-06-27] MEDS: MIDODRINE 5 MG TAB PO SCH ×2 (06:09→13:00)
[2023-06-27 06:39] LABS: ANION GAP 11.4 (8-16); CALCIUM 7.7 mg/dL (8.5-10.1); CARBON DIOXIDE 27.1 mmol/L (21-32); CHLORIDE 99 mmol/L (98-107); CREATININE 0.6 mg/dL (0.6-1.3); GLUCOSE 286 mg/dL (74-106); POTASSIUM 3.5 mmol/L (3.5-5.1); SODIUM SERUM 134 mmol/L (136-145); UREA NITROGEN, BLOOD 17 mg/dL (7-18)
[2023-06-27] MEDS ORDERED: ACETYLCYSTEINE 10% (100 MG/ML) 100 MG/ML VIAL INH SCH (07:00)
[2023-06-27 08:15] LABS: PHOSPHORUS 2.8 mg/dL (2.5-4.9)
[2023-06-27 08:38] LABS: BASOPHILS % (AUTO) 0.2 % (0.0-2.0); EOSINOPHILS % (AUTO) 0.3 % (0.0-4.0); HEMATOCRIT 22.8 % (36-52); HEMOGLOBIN 7.7 g/dL (12.0-18.0); LYMPHOCYTES # (AUTO) 0.2 K/uL (2.0-11.5); LYMPHOCYTES % (AUTO) 3.3 % (20.5-51.1); MEAN CORPUSCULAR HEMOGLOBIN 29 pg (27-31); MEAN CORPUSCULAR HGB CONC 34 g/dL (33-37); MEAN CORPUSCULAR VOLUME 85.4 fL (80-94); MONOCYTES # (AUTO) 0.1 K/uL (0.8-1.0); MONOCYTES % (AUTO) 2.4 % (1.7-9.3); NEUTROPHILS # (AUTO) 5.6 K/uL (1.8-7.7); NEUTROPHILS % (AUTO) 93.8 % (42.2-75.2); PLATELET COUNT (AUTO) 112 K/uL (140-450); RED BLOOD CELL COUNT(AUTO) 2.66 MIL/uL (4.20-6.10); RED CELL DISTRIBUTION WIDTH 16.9 % (11.6-13.7); WHITE BLOOD COUNT (AUTO) 5.9 K/uL (4.8-10.8)
[2023-06-27] MEDS: SODIUM CHLORIDE 1 GM TAB GT SCH ×2 (09:00→13:00)
[2023-06-27] MEDS: PROLENSA 0.07% OP SCH (09:00)
[2023-06-27] MEDS: AMIODARONE 200 MG TAB GT SCH (09:00)
[2023-06-27] MEDS: OPTHALMIC OP SCH (09:00)
[2023-06-27] MEDS: CABOZANTINIB 20 MG PO SCH (09:00)
[2023-06-27] MEDS: PANTOPRAZOLE 40 MG INJ VIAL IVP SCH (09:07)
[2023-06-27] MEDS: PREDNISOLONE 1% OP SCH (09:14)
[2023-06-27] MEDS ORDERED: HALOPERIDOL IM 5 MG/ML VIAL IM SCH ×2 (10:57→12:06)
== END 2023-06-28 00:03 | DRG 870 ==
LOC: MED 19:33 → MTU 06-09 02:34 → MIC 06-10 11:21 → MTU 06-26 18:00
PROVIDERS: ADMIT Student in an Organized Health Care Education/Training Program; ATTEND Student in an Organized Health Care Education/Training Program
PROC: 5A1955Z Respiratory Ventilation, Greater than 96 Consecutive Hours (ICD-10-PCS; principal; 2023-06-10)
PROC: 0BH17EZ Insertion of Endotracheal Airway into Trachea, Via Natural or Artificial Opening (ICD-10-PCS; 2023-06-10)
PROC: 02HV33Z Insertion of Infusion Device into Superior Vena Cava, Percutaneous Approach (ICD-10-PCS; 2023-06-10)
PROC: 5A0935A Assistance with Respiratory Ventilation, Less than 24 Consecutive Hours, High Flow/Velocity Cannula (ICD-10-PCS; 2023-06-26)
DX: A41.9 Sepsis, unspecified organism (principal); J69.0 Pneumonitis due to inhalation of food and vomit; E11.10 Type 2 diabetes mellitus with ketoacidosis without coma; J96.01 Acute respiratory failure with hypoxia; R65.21 Severe sepsis with septic shock; J18.9 Pneumonia, unspecified organism; N17.9 Acute kidney failure, unspecified; C79.51 Secondary malignant neoplasm of bone; I48.20 Chronic atrial fibrillation, unspecified; E46 Unspecified protein-calorie malnutrition; E86.0 Dehydration; I95.9 Hypotension, unspecified; D69.6 Thrombocytopenia, unspecified; Z20.822 Contact with and (suspected) exposure to COVID-19; E11.9 Type 2 diabetes mellitus without complications; Z85.528 Personal history of other malignant neoplasm of kidney; Z88.8 Allergy status to other drugs, medicaments and biological substances; Z88.1 Allergy status to other antibiotic agents; Z51.5 Encounter for palliative care; Z68.23 Body mass index [BMI] 23.0-23.9, adult
CPT/HCPCS: 36415; 36600; 70450; 71045; 71275; 76604; 80048; 80053; 80202; 81003; 82040; 82140; 82550; 82803; 82947; 82948; 83036; 83605; 83735; 83880; 84100; 84439; 84443; 84478; 84484; 85025; 85379; 87040; 87070; 87081; 87086; 87205; 89220; 92526; 92610; 93005; 93971; 94003; 94640; 96365; 96366; 96367; 99285; A9153; C1751; C9113; J0282; J0456; J1160; J1630; J1644; J1650; J1815; J1940; J2001; J2250; J2405; J2543; J3010; J3370; J3480; J3490; J7030; J7060; J7608; J7614; P9041; P9046; Q0092; Q9967